=== PATIENT | female | born 1965 | race African-American/Black ===

== ENCOUNTER 2018-02-20 15:48 | Emergency (ER) | payer OTHER ==
[~2018-02-20] VITALS: Ht 165.1 cm; Wt 83.0 kg
[~2018-02-20 15:48] MED LIST: NOCURR
[2018-02-20] MEDS ORDERED: LURA40 PO (15:52)
[2018-02-20 16:09] LABS: APPEARANCE,URINE CLEAR (CLEAR); BILIRUBIN,URINE NEGATIVE (NEGATIVE); GLUCOSE, URINE (UA) NEGATIVE (NEGATIVE); KETONES,URINE NEGATIVE (NEGATIVE); LEUKOCYTE ESTERASE ,URINE SMALL (NEGATIVE); NITRATE,URINE NEGATIVE (NEGATIVE); OCCULT BLOOD,URINE NEGATIVE (NEGATIVE); PH,URINE 5.5 (5.0-8.0); PROTEIN,URINE NEGATIVE (NEGATIVE)
[2018-02-20 17:08] VITALS: BP 137/96
[2018-02-20 17:11] LABS: BACTERIA,URINE None Seen /HPF (None Seen); RBC,URINE 0-2 /HPF (0-2); SQUAMOUS EPITHELIAL CELL,UR Few /LPF (None Seen)
[2018-02-20] MEDS ORDERED: MetroNIDAZOLE 250 MG TABLET PO ONE (17:15)
[2018-02-20] MEDS ORDERED: ACETAMINOPHEN/CODEINE 300-30 MG TABLET PO ONE (17:15)
[2018-02-20] MEDS ORDERED: FLUCONAZOLE 150 MG TABLET PO ONE (17:15)
== END 2018-02-20 17:37 | disposition home or self-care (01) ==
LOC: EMS 15:52
DX: B37.3 Candidiasis of vulva and vagina (principal); E03.9 Hypothyroidism, unspecified
CPT/HCPCS: 99284

== ENCOUNTER 2019-08-24 23:19 | Emergency (ER) | payer SELFPAY ==
[~2019-08-24] VITALS: Ht 165.1 cm; Wt 88.2 kg
[~2019-08-24 23:19] MED LIST changes: +LURA40 PO
[2019-08-25 01:24] LABS: APPEARANCE,URINE CLEAR (CLEAR); BILIRUBIN,URINE NEGATIVE (NEGATIVE); GLUCOSE, URINE (UA) NEGATIVE (NEGATIVE); KETONES,URINE NEGATIVE (NEGATIVE); LEUKOCYTE ESTERASE ,URINE NEGATIVE (NEGATIVE); NITRATE,URINE NEGATIVE (NEGATIVE); OCCULT BLOOD,URINE NEGATIVE (NEGATIVE); PROTEIN,URINE NEGATIVE (NEGATIVE)
[2019-08-25 01:27] VITALS: BP 138/82
[2019-08-25 01:31] LABS: BACTERIA,URINE None Seen /HPF (None Seen); RBC,URINE 0-2 /HPF (0-2); SQUAMOUS EPITHELIAL CELL,UR Moderate /LPF (None Seen); WBC,URINE None Seen /HPF (0-5)
== END 2019-08-25 02:04 | disposition home or self-care (01) ==
LOC: EMS 23:19
DX: R35.0 Frequency of micturition (principal); R30.0 Dysuria; R39.15 Urgency of urination; E03.9 Hypothyroidism, unspecified